=== PATIENT | female | born 1975 | race Caucasian/White ===

== ENCOUNTER 2016-08-09 19:18 | Emergency (ER) | payer OTHER ==
[~2016-08-09] VITALS: Ht 154.9 cm; Wt 47.5 kg
[~2016-08-09 19:18] MED LIST: BUPR100CR PO; PHEN100 PO; QUET100 PO; QUET200 PO; ZOFR4TAB3 SL
[2016-08-09 19:20] VITALS: BP 131/74; PULSE 88; RESP 15; TEMP 98.2; O2SAT 100
--- NOTE | 2016-08-09 20:29 | PD ---
HPI Chief Complaint: Psychiatric Symptoms Time Seen by Provider: 20:18 Travel History International Travel<30 days: No Contact w/Intl Traveler<30days: No Traveled to known affect area: No History of Present Illness HPI This is a 41-year-old female presents for evaluation of suicidal or homicidal ideation. She says that she's been feeling this way for the past 2-3 days. She reports that it seems to stem from the way that she is treated by "everyone. " She admits to recent drug use, most recently 3 or 4 days ago she used cocaine and alcohol. She is trying to quit. She does not see a psychiatrist on an outpatient basis. Per chart review it appears that the patient was admitted here psychiatrically on July 31 and discharged on August 01. She denies any hallucinations. She has no medical complaints at this time. PFSH Past Medical History Hx Anticoagulant Therapy: No Asthma: No Bipolar Disorder: Yes Anxiety: Yes Depression: Yes Cardiovascular Problems: No Chemotherapy: No Cerebrovascular Accident: No Diabetes: No Diminished Hearing: No Endocrine: No Genitourinary: No Immune Disorder: No Musculoskeletal: No Neurologic: Yes Psychiatric: No (Hx of treatment for depression) Reproductive: No Respiratory: No Immunizations Current: Yes Pneumonia: Yes Schizophrenia: Yes (SCHIZOAFFECTIVE) Seizures: Yes (Previously reported hx of seizure disorder) Thyroid Disease: No ?: Not LMP: 07/09/16 Menopausal: Yes : 2 Para: 1 Past Surgical History Section: Yes (X 2) Gynecologic Surgery: Yes (C SECTIONS X2) Hysterectomy: No Oral Surgery: Yes (JAW SURGERY) Other Surgery: Yes (jaw, ) Social History Alcohol Use: Yes (1/5 whiskey daily) Tobacco Use: Yes (1 PPD) Substance Use: Yes (COCAINED 2 DAYS AGO) Allergies-Medications (Allergen,Severity, Reaction): Coded Allergies: Aspirin (Verified Allergy, Severe, Swelling, 08/09/16) Nonsteroidal Anti-Inflammatory Agts (Unverified Allergy, Severe, SWELLING , 08/09/16) Haldol (Unverified Adverse Reaction, Unknown, 08/09/16) Reported Meds & Prescriptions Reported Meds & Active Scripts Active Review of Systems Except as stated in HPI: all other systems reviewed are Neg Physical Exam Narrative GENERAL: Well-developed well-nourished female in no acute distress SKIN: Warm and dry. HEAD: Atraumatic. Normocephalic. EYES: Pupils equal and round. No scleral icterus. No injection or drainage. ENT: No nasal bleeding or discharge. Mucous membranes pink and moist. NECK: Trachea midline. No JVD. CARDIOVASCULAR: Regular rate and rhythm. No murmur appreciated. RESPIRATORY: No accessory muscle use. Clear to auscultation. Breath sounds equal bilaterally. GASTROINTESTINAL: Abdomen soft, non-tender, nondistended. MUSCULOSKELETAL: No obvious deformities. NEUROLOGICAL: Awake and alert. No obvious cranial nerve deficits. Motor grossly within normal limits. Normal speech. PSYCHIATRIC: Appropriate mood and affect; insight and judgment normal. Data Data Last Documented VS Vital Signs Date Time Temp Pulse Resp B/P Pulse Ox O2 Delivery O2 Flow Rate FiO2 08/09/16 19:20 98.2 88 15 131/74 100 Room Air Orders Complete Blood Count With Diff (08/09/16 20:11) Comprehensive Metabolic Panel (08/09/16 20:11) Drug Screen, Random Urine (08/09/16 20:11) Alcohol (Ethanol) (08/09/16 20:11) Salicylates (Aspirin) (08/09/16 20:11) Tylenol (Acetaminophen) (08/09/16 20:11) Psych Screen (08/09/16 20:11) ^ Sitter (08/09/16 20:25) Labs Laboratory Tests Test 08/09/16 20:11 White Blood Count 5.3 TH/MM3 Red Blood Count 3.78 MIL/MM3 Hemoglobin 12.2 GM/DL Hematocrit 36.0 % Mean Corpuscular Volume 95.4 FL Mean Corpuscular Hemoglobin 32.3 PG Mean Corpuscular Hemoglobin 33.9 % Concent Red Cell Distribution Width 15.3 % Platelet Count 209 TH/MM3 Mean Platelet Volume 9.5 FL Neutrophils (%) (Auto) 62.0 % Lymphocytes (%) (Auto) 26.9 % Monocytes (%) (Auto) 8.5 % Eosinophils (%) (Auto) 2.2 % Basophils (%) (Auto) 0.4 % Neutrophils # (Auto) 3.3 TH/MM3 Lymphocytes # (Auto) 1.4 TH/MM3 Monocytes # (Auto) 0.5 TH/MM3 Eosinophils # (Auto) 0.1 TH/MM3 Basophils # (Auto) 0.0 TH/MM3 CBC Comment DIFF FINAL Differential Comment Sodium Level 142 MEQ/L Potassium Level 3.9 MEQ/L Chloride Level 112 MEQ/L Carbon Dioxide Level 25.7 MEQ/L Anion Gap 4 MEQ/L Blood Urea Nitrogen 10 MG/DL Creatinine 0.72 MG/DL Estimat Glomerular Filtration 90 ML/MIN Rate Random Glucose 78 MG/DL Calcium Level 8.6 MG/DL Total Bilirubin 0.2 MG/DL Aspartate Amino Transf 10 U/L (AST/SGOT) Alanine Aminotransferase 18 U/L (ALT/SGPT) Alkaline Phosphatase 72 U/L Total Protein 6.9 GM/DL Albumin 3.8 GM/DL Salicylates Level 4.4 MG/DL Urine Opiates Screen NEG Acetaminophen Level LESS THAN 2.0 MCG/ML Urine Barbiturates Screen NEG Urine Amphetamines Screen NEG Urine Benzodiazepines Screen NEG Urine Cocaine Screen NEG Urine Cannabinoids Screen NEG Ethyl Alcohol Level LESS THAN 3 MG/DL MDM Medical Decision Making Medical Screen Exam Complete: Yes Emergency Medical Condition: Yes Medical Record Reviewed: Yes Interpretation(s) Lab work unremarkable Differential Diagnosis Substance induced mood disorder, adjustment reaction, major depressive disorder , depressive disorder not otherwise specified, acute psychosis Narrative Course This is a 41-year-old female who presents voluntarily requesting evaluation for suicidal and homicidal ideation. Mental health screening discussed with the patient. Psychiatric screen ordered. A sitter has been ordered. The lab work has been reviewed. She is medically clear for psychiatric disposition. Joaquin Webb Aug 09, 2016 20:29
[2016-08-09 21:13] LABS: AUTOMATED NEUTROPHIL # 3.3 TH/MM3 (1.8-7.7); BASOPHIL % 0.4 % (0.0-2.0); EOSINOPHIL # 0.1 TH/MM3 (0-0.4); EOSINOPHIL % 2.2 % (0.0-4.0); HEMO FLAGS DIFF FINAL; LYMPH % 26.9 % (9.0-44.0); LYMPHOCYTE # 1.4 TH/MM3 (1.0-4.8); MEAN CELL VOLUME 95.4 FL (80.0-100.0); MEAN CORPUSCULAR HEMOGLOBIN 32.3 PG (27.0-34.0); MEAN CORPUSCULAR HGB CONC 33.9 % (32.0-36.0); MONO % 8.5 % (0.0-8.0); PLATELET COUNT 209 TH/MM3 (150-450); RED BLOOD COUNT 3.78 MIL/MM3 (4.00-5.30); RED CELL DISTRIBUTION WIDTH 15.3 % (11.6-17.2); WHITE BLOOD COUNT 5.3 TH/MM3 (4.0-11.0)
[2016-08-09 21:34] LABS: AMPHETAMINE, URINE NEG (NEG); BARBITURATES, URINE NEG (NEG); COCAINE, URINE NEG (NEG)
[2016-08-09 21:38] LABS: ACETAMINOPHEN LESS THAN 2.0 MCG/ML (10.0-30.0); ALKALINE PHOSPHATASE 72 U/L (45-117); ALT (GPT) 18 U/L (10-53); ANION GAP 4 MEQ/L (5-15); AST (GOT) 10 U/L (15-37); BICARBONATE 25.7 MEQ/L (21.0-32.0); BLOOD UREA NITROGEN 10 MG/DL (7-18); CHLORIDE 112 MEQ/L (98-107); GLOMERULAR FILTRATION RATE 90 ML/MIN (>89); POTASSIUM 3.9 MEQ/L (3.5-5.1); SODIUM (NA) 142 MEQ/L (136-145); TOTAL BILIRUBIN ADULT 0.2 MG/DL (0.2-1.0)
[2016-08-10 01:09] VITALS: BP 108/54; PULSE 63; RESP 16; O2SAT 98
== END 2016-08-10 06:48 | disposition left against medical advice (07) ==
LOC: NEPA 19:18
DX: R45.851 Suicidal ideations (principal); R45.850 Homicidal ideations; F31.9 Bipolar disorder, unspecified; F25.9 Schizoaffective disorder, unspecified; F17.210 Nicotine dependence, cigarettes, uncomplicated
CPT/HCPCS: 80053; 80307; 80320; 80329; 85025; 99285; G0480

== ENCOUNTER 2016-08-20 12:38 | Emergency (ER) | payer OTHER ==
[~2016-08-20] VITALS: Ht 152.4 cm; Wt 45.0 kg
[2016-08-20 12:40] VITALS: BP 130/72; PULSE 101; RESP 14; TEMP 98.4; O2SAT 98
--- NOTE | 2016-08-20 13:02 | PD ---
HPI Chief Complaint: Psychiatric Symptoms Time Seen by Provider: 13:02 Travel History International Travel<30 days: No Contact w/Intl Traveler<30days: No Traveled to known affect area: No History of Present Illness HPI 41-year-old female with history of seizure disorder, alcohol dependency and substance abuse presents to emergency department voluntarily for psychiatric evaluation. Patient states she has been feeling suicidal. She has no active plan. She states she last used alcohol and cocaine yesterday. She has recently been on a binge. States she has history of chronic back pain and this has been hurting her lately. She does not take any medication because she has been out. No new injuries. No recent illnesses, fever, chills. Patient has no other symptoms to report. PFSH Past Medical History Hx Anticoagulant Therapy: No Asthma: No Bipolar Disorder: Yes Anxiety: Yes Depression: Yes Cardiovascular Problems: No Chemotherapy: No Cerebrovascular Accident: No Diabetes: No Diminished Hearing: No Endocrine: No Gastrointestinal Disorders: Yes Genitourinary: No Immune Disorder: No Musculoskeletal: No Neurologic: Yes Reproductive: No Respiratory: No Immunizations Current: Yes Pneumonia: Yes Schizophrenia: Yes (SCHIZOAFFECTIVE) Seizures: Yes (Previously reported hx of seizure disorder) Thyroid Disease: No ?: Not Menopausal: Yes : 2 Para: 1 Past Surgical History Section: Yes (X 2) Gynecologic Surgery: Yes (C SECTIONS X2) Hysterectomy: No Oral Surgery: Yes (JAW SURGERY) Other Surgery: Yes (jaw, ) Social History Alcohol Use: Yes (1/5 whiskey daily) Tobacco Use: Yes (1 PPD) Substance Use: No Allergies-Medications (Allergen,Severity, Reaction): Coded Allergies: Aspirin (Verified Allergy, Severe, Swelling, 08/09/16) Nonsteroidal Anti-Inflammatory Agts (Unverified Allergy, Severe, SWELLING , 08/09/16) Haldol (Unverified Adverse Reaction, Unknown, 08/09/16) Reported Meds & Prescriptions Reported Meds & Active Scripts Active Review of Systems Except as stated in HPI: all other systems reviewed are Neg Physical Exam Narrative GENERAL: Unkempt but well-nourished female patient, ambulatory no acute distress SKIN: Warm and dry. HEAD: Normocephalic. Atraumatic EYES: No scleral icterus. No injection or drainage. NECK: Supple, trachea midline. No JVD or lymphadenopathy. CARDIOVASCULAR: Slightly elevated rate and rhythm without murmurs, gallops, or rubs. RESPIRATORY: Breath sounds equal bilaterally. No accessory muscle use. GASTROINTESTINAL: Abdomen soft, non-tender, nondistended. MUSCULOSKELETAL: No cyanosis, or edema. BACK: Nontender without obvious deformity. No CVA tenderness. Data Data Last Documented VS Vital Signs Date Time Temp Pulse Resp B/P Pulse Ox O2 Delivery O2 Flow Rate FiO2 08/20/16 13:28 98.5 76 18 115/64 100 08/20/16 12:40 Room Air Orders Complete Blood Count With Diff (08/20/16 12:51) Basic Metabolic Panel (Bmp) (08/20/16 12:51) Urinalysis - C+S If Indicated (08/20/16 12:51) Ed Urine Pregnancytest Poc (08/20/16 12:51) Drug Screen, Random Urine (08/20/16 12:51) Psych Screen (08/20/16 13:02) Urine Culture (08/20/16 13:37) Labs Laboratory Tests Test 08/20/16 13:37 Urine Color DARK-YELLOW Urine Turbidity CLOUDY Urine pH 5.5 Urine Specific [place] 1.028 Urine Protein 100 mg/dL Urine Glucose (UA) NEG mg/dL Urine Ketones 10 mg/dL Urine Occult Blood MOD Urine Nitrite NEG Urine Bilirubin NEG Urine Urobilinogen 4.0 MG/DL Urine Leukocyte Esterase LARGE Urine RBC 9 /hpf Urine WBC 71 /hpf Urine Squamous Epithelial 164 /hpf Cells Urine Calcium Oxalate Crystals MANY /hpf Urine Bacteria OCC /hpf Urine Mucus MANY /lpf Microscopic Urinalysis Comment CULTURE INDICATED MDM Medical Decision Making Medical Screen Exam Complete: Yes Emergency Medical Condition: Yes Medical Record Reviewed: Yes Differential Diagnosis Substance abuse versus mood disorder versus personality disorder versus adjustment reaction disorder Narrative Course 41-year-old female presents to emergency department voluntarily for psychiatric evaluation. Patient appears without distress. Her heart rate is slightly elevated however she does not appear tremulous or exhibiting any acute withdrawal symptoms. Lab work is initiated in triage. I have discussed the patient with SIDDHARTHA Baig. Patient will be transferred to the psychiatric pod while lab work pends. Psych screen is ordered. Diagnosis Primary Impression: substance induced mood Additional Impressions: Polysubstance abuse UTI (urinary tract infection) Qualified Code: N39.0 - Urinary tract infection without hematuria, site unspecified Med/Other Pt SpecificInfo: Prescription(s) given Scripts Ciprofloxacin (Cipro)500 Mg [id number] Mg PO BID 7 Days Ref 0 Prov:Anette Ferrer 08/20/16 Condition: Stable Anette Ferrer Aug 20, 2016 13:02
[2016-08-20 13:28] VITALS: BP 115/64; PULSE 76; RESP 18; TEMP 98.5; O2SAT 100
[2016-08-20 14:00] LABS: BACTERIA, URINE OCC /hpf; BLOOD, URINE MOD (NEG); CALCIUM OXALATE CRYSTALS,URINE MANY /hpf; GLUCOSE,URINE NEG (NEG); KETONE, URINE 10 mg/dL (NEG); MUCUS URINE MANY /lpf (OCC); NITRITE,URINE NEG (NEG); PH, URINE 5.5 (5.0-8.5); SQUAMOUS EPITHELIAL CELL URINE 164 /hpf (0-5); URINE COLOR DARK-YELLOW (YELLW/STRAW)
[2016-08-20 14:06] LABS: COMMENT (UR) CULTURE INDICATED; CULTURE IF INDICATED CULTURE INDICATED
[2016-08-20] MEDS ORDERED: CIPR-9 PO (14:11)
[2016-08-20 14:14] LABS: AMPHETAMINE, URINE NEG (NEG); BARBITURATES, URINE NEG (NEG); COCAINE, URINE POS (NEG)
[2016-08-20] MEDS ORDERED: LIDOCAINE HCL 1% 50 ML VIAL XX ONE (14:15)
[2016-08-20 18:56] LABS: AUTOMATED NEUTROPHIL # 1.9 TH/MM3 (1.8-7.7); BASOPHIL # 0.1 TH/MM3 (0-0.2); BASOPHIL % 1.4 % (0.0-2.0); EOSINOPHIL # 0.1 TH/MM3 (0-0.4); EOSINOPHIL % 1.4 % (0.0-4.0); HEMATOCRIT 36.5 % (35.0-46.0); HEMO FLAGS DIFF FINAL; LYMPH % 37.2 % (9.0-44.0); LYMPHOCYTE # 1.5 TH/MM3 (1.0-4.8); MEAN CELL VOLUME 95.9 FL (80.0-100.0); MEAN CORPUSCULAR HEMOGLOBIN 31.7 PG (27.0-34.0); MEAN CORPUSCULAR HGB CONC 33.1 % (32.0-36.0); MONO % 12.7 % (0.0-8.0); NEUT % 47.3 % (16.0-70.0); PLATELET COUNT 179 TH/MM3 (150-450); RED BLOOD COUNT 3.81 MIL/MM3 (4.00-5.30); RED CELL DISTRIBUTION WIDTH 14.6 % (11.6-17.2); WHITE BLOOD COUNT 4.1 TH/MM3 (4.0-11.0)
[2016-08-20 19:27] LABS: BICARBONATE 25.4 MEQ/L (21.0-32.0); POTASSIUM 3.7 MEQ/L (3.5-5.1)
--- NOTE | 2016-08-20 19:28 | PD ---
History of Present Illness Chief Complaint: Psychiatric Symptoms Time Seen by Provider: 19:15 Travel History International Travel<30 Days: No Contact w/Intl Traveler<30days: No Known affected area: No Legal Status Legal Status: Voluntary History of Present Illness: History of Present Illness 41-year-old female with history of seizure disorder, schizoaffective disorder, alcohol and cocaine abuse who presents to ED voluntarily for psychiatric evaluation. Patient is reporting increase in suicidal ideation with no reported plan and that the thoughts have increased since she went on a cocaine binge x 1 week. She has made no attempts but does report a history of previous suicidal attempts with the last being 5 months ago when she alleges she jumped in front of a car. She states she last used alcohol and cocaine yesterday. As per EMR review she has had multiple visits to Ed as well as several admissions to [facility]. her last psychiatric admission was on Jul 31, 2016 and she was admitted for suicidal ideation. She requested release after 24 hours stay. She has been non compliant with her medication for at least 2 weeks after her discharge from a facility in [place]. She is unable to provide the name of the facility but states that it was a psychiatric facility. Patient is alert, oriented, calm and engaging. Speech is clear and logical. She reports A/H non command type and states " they are spirit voices". She does not appear internally preoccupied. She endorses continued sucidal ideation with no plan. PFSH Past Medical History Hx Anticoagulant Therapy: No Asthma: No Bipolar Disorder: Yes Anxiety: Yes Depression: Yes Cardiovascular Problems: No Chemotherapy: No Cerebrovascular Accident: No Diabetes: No Diminished Hearing: No Endocrine: No Gastrointestinal Disorders: Yes Genitourinary: No Immune Disorder: No Musculoskeletal: No Neurologic: Yes Psychiatric: Yes (SCHIZOAFFECTIVE) Reproductive: No Respiratory: No Immunizations Current: Yes Pneumonia: Yes Schizophrenia: Yes (SCHIZOAFFECTIVE) Seizures: Yes (WITHDRAWAL) Thyroid Disease: No ?: Unknown Menopausal: Yes : 2 Para: 1 Past Surgical History Section: Yes Gynecologic Surgery: Yes (C SECTIONS X2) Hysterectomy: No Oral Surgery: Yes (JAW SURGERY) Other Surgery: Yes (jaw, ) Psychiatric History Psychiatric History Hx [facility]IENT HAS A HISTORY OF SCHIZOPHRENIA, BIPOLAR DISORDER, DEPRESSION, AND ANXIETY. PATIENT WAS LAST ADMITTED TO [facility] FROM 07/31/16 TO 08/01/16 FOR SUICIDAL IDEATION. History of Inpatient Treatment: Yes (has been admitted [facility] Guns or firearms in home: No Social History female. Has 3 children who are in the custody of their father. She is homeless and reports she " do what I have to do to make money". Hx Alcohol Use: Yes Hx Tobacco Use: Yes Hx Substance Use: Yes (CRACK) Substance Use Type: Alcohol, Crack, Cocaine Other Substances Used: SINCE AGE 18 PER REPORT Hx of Substance Use Treatment: No Family Psychiatric History unknown Allergies-Medications (Allergen,Severity, Reaction): Coded Allergies: Aspirin (Verified Allergy, Severe, Swelling, 08/20/16) Nonsteroidal Anti-Inflammatory Agts (Unverified Allergy, Severe, SWELLING , 08/20/16) Haldol (Unverified Adverse Reaction, Unknown, 08/20/16) Reported Meds & Prescriptions Reported Meds & Active Scripts Active No Active Prescriptions or Reported Medications Review of Systems Constitutional: DENIES: Diaphoretic episodes, Fatigue, Fever, Weight gain, Weight loss, Chills, Dizziness, Change in appetite, Night Sweats Endocrine: DENIES: Abnorml menstrual pattern, Heat/cold intolerance, Polydipsia , Polyuria, Polyphagia Eyes: DENIES: Blurred vision, Diplopia, Eye inflammation, Eye pain, Vision loss , Photosensitivity, Double Vision Ears, nose, mouth, throat: DENIES: Tinnitus, Hearing loss, Vertigo, Nasal discharge, Oral lesions, Throat pain, Hoarseness, Ear Pain, Running Nose, Epistaxis, Sinus Pain, Toothache, Odynophagia Respiratory: DENIES: Apneas, Cough, Snoring, Wheezing, Hemoptysis, Sputum production, Shortness of breath Cardiovascular: DENIES: Chest pain, Palpitations, Syncope, Dyspnea on Exertion , PND, Lower Extremity Edema, Orthopnea, Claudication Genitourinary: DENIES: Abnormal vaginal bleeding, Dysmenorrhea, Dyspareunia, Sexual dysfunction, Urinary frequency, Urinary incontinence, Urgency, Hematuria , Dysuria, Nocturia, Vaginal discharge Musculoskeletal: DENIES: Joint pain, Muscle aches, Stiffness, Joint Swelling, Back pain, Neck pain Integumentary: DENIES: Abnormal pigmentation, Pruritus, Rash, Nail changes, Breast masses, Breast skin changes, Nipple discharge Hematologic/lymphatic: DENIES: Bruising, Lymphadenopathy Immunologic/allergic: DENIES: Eczema, Urticaria Neurologic: DENIES: Abnormal gait, Headache, Localized weakness, Paresthesias, Seizures, Speech Problems, Tremor, Poor Balance Psychiatric: COMPLAINS OF: Hallucinations, Suicidal Ideation Exam Alert: Yes [place]: Person (ox3) Mood: Anxious Affect: Euthymic Speech: Clear, Logical Eye Contact: Normal Memory Intact: Comment (not impaired) Hallucinations: Auditory Delusions: No Suicidal: Plan (no active plan), Ideation Homicidal: Ideation (deneis) Insight/Judgement poor. poor MDM Medical Decision Making Medical Record Reviewed: Yes Assessment/Plan 41 year old female with history of schizoaffective disorder and substance abuse who is under a voluntary status for suicidal ideation and increase in auditory hallucinations in context of non compliance with medication and substance use including alcohol and cocaine. At this time the patient is clinically sober and continues to endorse suicidal ideation. It is recommended that she be admitted to inpatient treatment for safety and to initiate psychiatric medication. She will remain in J pod until bed available or until she is reevaluated in the morning. Orders Complete Blood Count With Diff (08/20/16 12:51) Basic Metabolic Panel (Bmp) (08/20/16 12:51) Urinalysis - C+S If Indicated (08/20/16 12:51) Ed Urine Pregnancytest Poc (08/20/16 12:51) Drug Screen, Random Urine (08/20/16 12:51) Psych Screen (08/20/16 13:02) Urine Culture (08/20/16 13:37) Ceftriaxone Inj (Rocephin Inj) (08/20/16 14:15) Lidocaine 1% Inj (50 Ml) (Xylocaine 1% I (08/20/16 14:15) Diet Regular Basic (08/20/16 Dinner) Results Vital Signs Date Time Temp Pulse Resp B/P Pulse Ox O2 Delivery O2 Flow Rate FiO2 08/20/16 13:28 98.5 76 18 115/64 100 08/20/16 12:40 98.4 101 14 130/72 98 Room Air Laboratory Tests Test 08/20/16 08/20/16 13:37 18:33 Urine Color DARK-YELLOW Urine Turbidity CLOUDY Urine pH 5.5 Urine Specific [place] 1.028 Urine Protein 100 Urine Glucose (UA) NEG Urine Ketones 10 Urine Occult Blood MOD Urine Nitrite NEG Urine Bilirubin NEG Urine Urobilinogen 4.0 Urine Leukocyte Esterase LARGE Urine RBC 9 Urine WBC 71 Urine Squamous Epithelial 164 Cells Urine Calcium Oxalate Crystals MANY Urine Bacteria OCC Urine Mucus MANY Microscopic Urinalysis Comment CULTURE INDICATED Urine Opiates Screen NEG Urine Barbiturates Screen NEG Urine Amphetamines Screen NEG Urine Benzodiazepines Screen NEG Urine Cocaine Screen POS Urine Cannabinoids Screen NEG White Blood Count 4.1 Red Blood Count 3.81 Hemoglobin 12.1 Hematocrit 36.5 Mean Corpuscular Volume 95.9 Mean Corpuscular Hemoglobin 31.7 Mean Corpuscular Hemoglobin 33.1 Concent Red Cell Distribution Width 14.6 Platelet Count 179 Mean Platelet Volume 8.7 Neutrophils (%) (Auto) 47.3 Lymphocytes (%) (Auto) 37.2 Monocytes (%) (Auto) 12.7 Eosinophils (%) (Auto) 1.4 Basophils (%) (Auto) 1.4 Neutrophils # (Auto) 1.9 Lymphocytes # (Auto) 1.5 Monocytes # (Auto) 0.5 Eosinophils # (Auto) 0.1 Basophils # (Auto) 0.1 CBC Comment DIFF FINAL Differential Comment Sodium Level 140 Potassium Level 3.7 Chloride Level 106 Carbon Dioxide Level 25.4 Anion Gap 9 Blood Urea Nitrogen 12 Creatinine 0.74 Estimat Glomerular Filtration 87 Rate Random Glucose 75 Calcium Level 8.5 Date/Time Procedure Status Source Growth 08/20/16 13:37 Urine Culture Worksheet Urine Clean Catch Pending Diagnosis Primary Impression: substance induced mood Additional Impressions: UTI (urinary tract infection) Polysubstance abuse Schizoaffective disorder, bipolar type Prescriptions No Active Prescriptions or Reported Meds Condition: Stable Problem Qualifiers Additional Impressions: UTI (urinary tract infection) Qualified Code: N39.0 - Urinary tract infection without hematuria, site unspecified Johnna Flynn Aug 20, 2016 19:28
[2016-08-20] MEDS ORDERED: PHENYTOIN SODIUM 100 MG CAP PO ONE (20:00)
[2016-08-20 22:21] VITALS: BP 101/54; PULSE 60; RESP 16; O2SAT 99
[2016-08-21 01:55] VITALS: BP 103/51; PULSE 65; RESP 18; O2SAT 99
[2016-08-21 06:31] VITALS: BP 101/51; PULSE 63; RESP 17; TEMP 98.6; O2SAT 100
[2016-08-21] MEDS: CEPHALEXIN MONOHYDRATE 500 MG CAP PO ONE ×2 (10:10→11:25)
[2016-08-21] MEDS ORDERED: ACETAMINOPHEN 325 MG TAB PO ONE (11:45)
[2016-08-21] MEDS ORDERED: LORazepam 2 MG/ML VIAL IV PUSH PRN ×4 (18:00)
[2016-08-21] MEDS ORDERED: LORazepam 1 MG TAB PO PRN (18:00)
[2016-08-21] MEDS ORDERED: LORazepam 2 MG TAB PO PRN (18:00)
[2016-08-21] MEDS ORDERED: FLUMAZENIL 0.5 MG/5 ML VIAL IV PUSH PRN (18:00)
[2016-08-21 18:18] VITALS: BP 108/53; PULSE 66; RESP 18; O2SAT 96
--- NOTE | 2016-08-21 18:41 | MB ---
cc: FANY CRAMER MD DATE OF CONSULTATION: 08/21/16 PHYSICIAN REQUESTING CONSULTATION Emergency Department. REASON FOR CONSULTATION Voluntary psychiatric evaluation. HISTORY OF PRESENT ILLNESS Ms. Treadwell is a 41-year-old female with a reported history of schizoaffective disorder and also cocaine use disorder who presents on a voluntary basis for psychiatric evaluation saying she has been feeling suicidal. The patient was evaluated yesterday by the psychiatric nurse practitioner who recommended ongoing observation in the [facility] and inpatient psychiatric admission. Reviewing the electronic medical record, I see the patient has an extensive history of ED visits and inpatient psychiatric admissions most recently admitted under Dr. Dos Santos/Dr. Quintanilla at the end of July, and she insisted on signing a right of release after having been in the hospital for about a day and was discharged. I also note that the patient presented to the ED with similar symptoms to today about 10 days ago and left against medical advice at that time. The patient seen and examined. Chart reviewed. Case discussed with nursing staff. The patient's report me is "I have insurance and I'm suicidal, send me somewhere else." The patient requests to be admitted to and inpatient psychiatric unit. She says that she is experiencing suicidal ideation and "demonic voices that are speaking constant threats that they want me ." She is otherwise an extremely vague historian. The remainder of the psychiatric ROS is negative. PAST PSYCHIATRIC HISTORY The patient reports a history of schizoaffective disorder. She has been, by her own admission, repeatedly nonadherent with treatment. Her most recent psychiatric admission was here. She endorses a history of non-suicidal self-injurious behavior namely cutting and also alludes to some history of lara asmita suicide attempts although she does not describe these in any detail. FAMILY HISTORY Includes a family history of bipolar disorder. CHEMICAL DEPENDENCY HISTORY The patient reports that she uses both powder and crack cocaine. She also says that she drinks some alcohol. She says that she consumes perhaps a pint of liquor daily. SOCIAL HISTORY The patient is homeless. She has an 11th grade education. She is with eight children. Denies any history. Denies any active legal issues. Denies any access to guns or firearms. PAST MEDICAL HISTORY Includes a history of seizure disorder. REVIEW OF SYSTEMS No reported headache, vision or hearing changes, chest pain, shortness of breath, bowel or bladder issues. No other physical complaints. PHYSICAL EXAMINATION VITAL SIGNS: Temp is 98.6, pulse is 63, respirations 17, blood pressure 101/51, pulse oximetry 100% on room air. Physical examination was completed in the emergency room by the ER staff and the patient was medically cleared. On my examination today, the patient appears to be in no acute physical distress. No signs of intoxication or withdrawal noted. In particular no signs of alcohol withdrawal noted, nor is the patient hypertensive or tachycardic. She appears to be in no acute distress generally. LABORATORY Laboratories reviewed. CBC is unremarkable. BMP is significant for a mildly decreased GFR of 87. Urine toxicology positive for cocaine. Urinalysis results reviewed and the urine culture reveals mixed priscila. MENTAL STATUS EXAMINATION The patient is in hospital gown. She is fairly well-groomed. She is awake and alert and oriented to person and hospital at least. No abnormal motor movements noted. Speech is with a little terse but within normal limits for rate, tone and volume. Mood is dysphoric but not really depressed and affect is restricted. Thought process linear. No loosening of associations. No evident delusions. Endorses deprecatory auditory hallucinations as detailed above. No reported command auditory hallucinations. No visual or other hallucinatory phenomena. The patient insists that she is suicidal but does not say what she might do. No reported urge to hurt herself on the inpatient psychiatric unit. No homicidal ideation. Insight and judgment are fair. ASSESSMENT AND PLAN 1. Cocaine dependence with cocaine-induced mood disorder, F14.24. 2. Suspect symptom exaggeration or malingering for skilled nursing. This is a 41-year-old female with a history of cocaine dependence who presents on a voluntary basis for psychiatric evaluation. She came in for psychiatric evaluation about 10 days ago and left against medical advice. Before that she had been on the inpatient psychiatric unit and insisted on release. The patient is presently homeless and my sense is that the patient is seeking admission to the inpatient psychiatric unit chiefly for skilled nursing. She apparently does not want to be hospitalized at [facility] and says that she has insurance and should be transferred elsewhere. We will endeavor to accommodate the patient. The patient to be retained in the [facility] on a voluntary basis and [facility]. I will place the patient on a CIWA scale given that the patient reports that she has been abusing alcohol although she has no signs of withdrawal at present. Seizure precautions. Case discussed with RN in the J pod. Thank you very much for this consultation. Fany Cramer DC/CHHAYA /5:52 PM /6:16 PM ALTAF
[2016-08-21] MEDS ORDERED: CEPHALEXIN MONOHYDRATE 500 MG CAP PO SCH (21:00)
[2016-08-21 22:00] VITALS: BP 79/43; PULSE 65; RESP 18; O2SAT 99
[2016-08-22 02:43] VITALS: BP 100/54; PULSE 60; RESP 18; O2SAT 97
[2016-08-22 06:18] VITALS: BP 99/48; PULSE 60; RESP 18; TEMP 97.5; O2SAT 97
== END 2016-08-22 08:40 ==
LOC: NEPJ 12:38
DX: F14.24 Cocaine dependence with cocaine-induced mood disorder (principal); N39.0 Urinary tract infection, site not specified; F10.20 Alcohol dependence, uncomplicated; F25.9 Schizoaffective disorder, unspecified; F17.210 Nicotine dependence, cigarettes, uncomplicated; F19.10 Other psychoactive substance abuse, uncomplicated
CPT/HCPCS: 80048; 80307; 81001; 84703; 85025; 87086; 96372; 99285; J0696

== ENCOUNTER 2016-09-07 00:23 | Emergency (ER) | payer OTHER ==
[~2016-09-07] VITALS: Ht 154.9 cm; Wt 50.0 kg
[2016-09-07 00:36] VITALS: BP 141/76; PULSE 84; RESP 18; TEMP 97.9; O2SAT 99
--- NOTE | 2016-09-07 00:49 | PD ---
HPI Chief Complaint: Altered Mental Status Time Seen by Provider: 00:36 Travel History International Travel<30 days: No Contact w/Intl Traveler<30days: No History of Present Illness HPI 41-year-old female here brought in by police. Apparently patient was smoking in front of the [employer] store. Please have been told to rest any person loitering. Patient was approached by police and was cooperative until the stated that they needed to bring her to senior care. When attempting to cough her patient stated that she had "a heart condition" and cannot go to senior care because " I don't have a pulse". EMS was called and noted patient to be hypoglycemic in the 50s, improved with oral glucose. Blood glucose here in the 80s. Patient states that she has bilateral low back pain, and urinary frequency. Patient seen here recently with abnormal urinalysis but urine culture with mixed priscila. She has a history of polysubstance abuse and substance induced mood disorder. She denies any psychiatric symptoms at this time. PFSH Past Medical History Hx Anticoagulant Therapy: No Asthma: No Bipolar Disorder: Yes Anxiety: Yes Depression: Yes Cardiovascular Problems: No Chemotherapy: No Cerebrovascular Accident: No Diabetes: No Diminished Hearing: No Endocrine: No Gastrointestinal Disorders: Yes Genitourinary: No Immune Disorder: No Musculoskeletal: No Neurologic: Yes Psychiatric: Yes (SCHIZOAFFECTIVE) Reproductive: No Respiratory: No Immunizations Current: Yes Pneumonia: Yes Schizophrenia: Yes (SCHIZOAFFECTIVE) Seizures: Yes (WITHDRAWAL) Thyroid Disease: No Menopausal: Yes : 2 Para: 1 Past Surgical History Section: Yes Gynecologic Surgery: Yes (C SECTIONS X2) Hysterectomy: No Oral Surgery: Yes (JAW SURGERY) Other Surgery: Yes (jaw, ) Social History Alcohol Use: Yes Tobacco Use: Yes Substance Use: Yes (CRACK) Allergies-Medications (Allergen,Severity, Reaction): Coded Allergies: Aspirin (Verified Allergy, Severe, Swelling, 09/07/16) Haldol (Unverified Adverse Reaction, Unknown, 09/07/16) Reported Meds & Prescriptions Reported Meds & Active Scripts Active No Active Prescriptions or Reported Medications Review of Systems ROS Limitations: Poor Historian Except as stated in HPI: all other systems reviewed are Neg Physical Exam Exam Limitations: Poor Historian Narrative GENERAL: Disheveled adult female appearing older than stated age in no acute distress SKIN: Warm and dry. HEAD: Normocephalic. EYES: No scleral icterus. No injection or drainage. ENT: Mucous membranes pink and moist. NECK: Supple CARDIOVASCULAR: Regular rate and rhythm. No murmur appreciated. RESPIRATORY: No accessory muscle use. Clear to auscultation. Breath sounds equal bilaterally. GASTROINTESTINAL: Abdomen soft, non-tender, nondistended. MUSCULOSKELETAL: Normal gait NEUROLOGICAL: Awake and alert. Motor grossly within normal limits. Normal speech. PSYCHIATRIC: Blunted mood and affect, denies suicidal ideation, homicide ideation, delusions or hallucinations Data Data Last Documented VS Vital Signs Date Time Temp Pulse Resp B/P Pulse Ox O2 Delivery O2 Flow Rate FiO2 09/07/16 00:36 97.9 84 18 141/76 99 Orders Complete Blood Count With Diff (09/07/16 00:44) Basic Metabolic Panel (Bmp) (09/07/16 00:44) Urinalysis - C+S If Indicated (09/07/16 00:44) Drug Screen, Random Urine (09/07/16 00:44) Ibuprofen (Motrin) (09/07/16 02:30) Labs Laboratory Tests Test 09/07/16 09/07/16 01:00 01:45 Urine Color YELLOW Urine Turbidity CLEAR Urine pH 6.0 Urine Specific Graham 1.018 Urine Protein TRACE mg/dL Urine Glucose (UA) NEG mg/dL Urine Ketones 10 mg/dL Urine Occult Blood NEG Urine Nitrite NEG Urine Bilirubin NEG Urine Urobilinogen LESS THAN 2.0 MG/DL Urine Leukocyte Esterase NEG Urine RBC LESS THAN 1 /hpf Urine WBC 2 /hpf Urine Squamous Epithelial 1 /hpf Cells Urine Hyaline Casts 3 /lpf Urine Mucus FEW /lpf Microscopic Urinalysis Comment CATH-CULT NOT IND Sodium Level 140 MEQ/L Potassium Level 3.3 MEQ/L Chloride Level 108 MEQ/L Carbon Dioxide Level 20.9 MEQ/L Anion Gap 11 MEQ/L Blood Urea Nitrogen 8 MG/DL Creatinine 0.74 MG/DL Estimat Glomerular Filtration 87 ML/MIN Rate Random Glucose 121 MG/DL Calcium Level 8.0 MG/DL White Blood Count 5.7 TH/MM3 Red Blood Count 3.78 MIL/MM3 Hemoglobin 12.0 GM/DL Hematocrit 35.2 % Mean Corpuscular Volume 93.0 FL Mean Corpuscular Hemoglobin 31.8 PG Mean Corpuscular Hemoglobin 34.2 % Concent Red Cell Distribution Width 14.0 % Platelet Count 174 TH/MM3 Mean Platelet Volume 8.6 FL Neutrophils (%) (Auto) 60.6 % Lymphocytes (%) (Auto) 34.4 % Monocytes (%) (Auto) 3.7 % Eosinophils (%) (Auto) 0.8 % Basophils (%) (Auto) 0.5 % Neutrophils # (Auto) 3.5 TH/MM3 Lymphocytes # (Auto) 2.0 TH/MM3 Monocytes # (Auto) 0.2 TH/MM3 Eosinophils # (Auto) 0.0 TH/MM3 Basophils # (Auto) 0.0 TH/MM3 CBC Comment DIFF FINAL Differential Comment MDM Medical Decision Making Medical Screen Exam Complete: Yes Emergency Medical Condition: Yes Medical Record Reviewed: Yes Differential Diagnosis 41-year-old female with history of polysubstance abuse and psychiatric disorders here complaining of "not having a pulse" and low back pain/urinary symptoms after she was arrested. Differential includes evading arrest, UTI, ureterolithiasis. Patient was hypoglycemic and does not have a known diabetic history, concern for electrolyte abnormality. Narrative Course Patient placed on monitor, IV established and blood obtained. CBC, BMP, urinalysis and urine drug screen notable for potassium 3.3. Replaced with 40 mEq orally. Diagnosis Primary Impression: Hypokalemia Referrals: [facility] as needed Primary Care Physician as needed Med/Other Pt SpecificInfo: No Change to Meds Scripts No Active Prescriptions or Reported Meds Disposition: DISCHARGE HOME Condition: Stable Judy Venegas MD Sep 07, 2016 00:49
[2016-09-07 01:48] LABS: BLOOD, URINE NEG (NEG); COMMENT (UR) CATH-CULT NOT IND; CULTURE IF INDICATED CATH CULTURE NOT IND; GLUCOSE,URINE NEG (NEG); HYALINE CAST, URINE 3 /lpf (RARE); KETONE, URINE 10 mg/dL (NEG); MUCUS URINE FEW /lpf (OCC); NITRITE,URINE NEG (NEG); SQUAMOUS EPITHELIAL CELL URINE 1 /hpf (0-5); URINE COLOR YELLOW (YELLW/STRAW)
[2016-09-07 02:02] LABS: BICARBONATE 20.9 MEQ/L (21.0-32.0); POTASSIUM 3.3 MEQ/L (3.5-5.1)
[2016-09-07 02:14] LABS: AMPHETAMINE, URINE NEG (NEG); BARBITURATES, URINE NEG (NEG); COCAINE, URINE POS (NEG)
[2016-09-07 02:28] LABS: AUTOMATED NEUTROPHIL # 3.5 TH/MM3 (1.8-7.7); BASOPHIL % 0.5 % (0.0-2.0); EOSINOPHIL % 0.8 % (0.0-4.0); HEMATOCRIT 35.2 % (35.0-46.0); HEMO FLAGS DIFF FINAL; LYMPH % 34.4 % (9.0-44.0); MEAN CORPUSCULAR HEMOGLOBIN 31.8 PG (27.0-34.0); MEAN CORPUSCULAR HGB CONC 34.2 % (32.0-36.0); MONO % 3.7 % (0.0-8.0); NEUT % 60.6 % (16.0-70.0); PLATELET COUNT 174 TH/MM3 (150-450); RED BLOOD COUNT 3.78 MIL/MM3 (4.00-5.30); WHITE BLOOD COUNT 5.7 TH/MM3 (4.0-11.0)
[2016-09-07] MEDS ORDERED: IBUPROFEN 800 MG TAB PO ONE (02:30)
[2016-09-07] MEDS ORDERED: POTASSIUM CHLORIDE 10 MEQ CONTROLLED RELEASE TAB PO ONE (02:45)
== END 2016-09-07 03:01 | disposition home or self-care (01) ==
LOC: NEPE 00:23
DX: E87.6 Hypokalemia (principal)
CPT/HCPCS: 80048; 80307; 81001; 85025; 99283

== ENCOUNTER 2016-09-07 03:10 | Emergency (ER) | payer OTHER ==
[2016-09-07 03:12] VITALS: BP 155/78; PULSE 99; RESP 16; TEMP 98.3; O2SAT 98
--- NOTE | 2016-09-07 03:31 | PD ---
HPI Chief Complaint: Suicide Ideation/Attempt Time Seen by Provider: 03:27 Travel History International Travel<30 days: No Contact w/Intl Traveler<30days: No Traveled to known affect area: No History of Present Illness HPI 41-year-old female here after just being discharged by myself, now back with suicidal ideation. Patient had been picked up by police and trespassing charges and was cooperative and asymptomatic until she found out that she was being arrested at which point she had various symptoms. She was seen and evaluated by myself, just the last 1-2 hours, please see that associated note. At that time patient denied any suicidal ideation, plan, etc. She was discharged after unremarkable workup. Patient is homeless. She left our emergency department, and comes back now stating that she is suicidal. She does not have a plan. Patient admits that she is homeless and is cold outside and she does not have anywhere to go. She does not take any medications at home. Patient requests to go to [facility]. [facility] Past Medical History Hx Anticoagulant Therapy: No Asthma: No Bipolar Disorder: Yes Anxiety: Yes Depression: Yes Cardiovascular Problems: No Chemotherapy: No Cerebrovascular Accident: No Diabetes: No Diminished Hearing: No Endocrine: No Gastrointestinal Disorders: Yes Genitourinary: No Immune Disorder: No Musculoskeletal: No Neurologic: Yes Psychiatric: Yes (SCHIZOAFFECTIVE) Reproductive: No Respiratory: No Immunizations Current: Yes Pneumonia: Yes Schizophrenia: Yes (SCHIZOAFFECTIVE) Seizures: Yes (WITHDRAWAL) Thyroid Disease: No Tetanus Vaccination: Unknown Influenza Vaccination: No ?: Not Menopausal: Yes : 2 Para: 1 Past Surgical History Section: Yes Gynecologic Surgery: Yes (C SECTIONS X2) Hysterectomy: No Oral Surgery: Yes (JAW SURGERY) Other Surgery: Yes (jaw, ) Social History Alcohol Use: Yes Tobacco Use: Yes Substance Use: Yes (CRACK) Allergies-Medications (Allergen,Severity, Reaction): Coded Allergies: Aspirin (Verified Allergy, Severe, Swelling, 09/07/16) Haldol (Unverified Adverse Reaction, Unknown, 09/07/16) Reported Meds & Prescriptions Reported Meds & Active Scripts Active No Active Prescriptions or Reported Medications Review of Systems ROS Limitations: Poor Historian Except as stated in HPI: all other systems reviewed are Neg Physical Exam Exam Limitations: Poor Historian Narrative GENERAL: Thin female in no acute distress SKIN: Warm and dry. HEAD: Normocephalic. EYES: No scleral icterus. No injection or drainage. ENT: Mucous membranes pink and moist. NECK: Supple CARDIOVASCULAR: Regular rate and rhythm. RESPIRATORY: No accessory muscle use. MUSCULOSKELETAL: Normal gait NEUROLOGICAL: Awake and alert. Normal speech. PSYCHIATRIC: Reported suicidal ideation but no plan. Denies delusions, hallucinations, homicidal ideation. Data Data Last Documented VS Vital Signs Date Time Temp Pulse Resp B/P Pulse Ox O2 Delivery O2 Flow Rate FiO2 09/07/16 03:12 98.3 99 16 155/78 98 Room Air MDM Medical Decision Making Medical Screen Exam Complete: Yes Emergency Medical Condition: Yes Medical Record Reviewed: Yes Differential Diagnosis 41-year-old female here for suicidal ideation. Differential includes depression , suicidal ideation, substance induced mood disorder, malingering. Narrative Course Given patient's timeline of just being here and not having suicidal ideation or plan my strong suspicion is that patient is malingering as she is currently homeless, at 3:30 in the morning and cold outside. Patient admits that her lack of domicile contributes to her symptoms here and requests to go to [facility]. I discussed appropriate use of emergency department resources, and though I'm happy to get her outpatient follow-up for her depression, emergent psychiatric evaluation is not warranted at this time given her lack of plan and malingering symptoms. Patient became upset with me because I was not going to allow her to sleep in our emergency department overnight, patient states "I'm hungry, and it's cold". Patient grabbed the blanket that was on her bed and stormed out of the emergency department stating "I'm in intake this blanket as I paid for it already". I encouraged her to seek outpatient follow-up with [facility] for her polysubstance abuse. Diagnosis Primary Impression: Malingering Referrals: [facility] needed Med/Other Pt SpecificInfo: No Change to Meds Scripts No Active Prescriptions or Reported Meds Disposition: 01 DISCHARGE HOME Condition: Stable Judy Venegas MD Sep 07, 2016 03:31
== END 2016-09-07 03:44 | disposition home or self-care (01) ==
LOC: NEPE 03:10
DX: R45.851 Suicidal ideations (principal); Z76.5 Malingerer [conscious simulation]; Z59.0 Homelessness
CPT/HCPCS: 99284

== ENCOUNTER 2017-11-07 16:24 | Emergency (ER) | payer OTHER ==
[2017-11-07 16:47] VITALS: BP 116/73; PULSE 73; RESP 17; TEMP 98.2; O2SAT 100
[2017-11-07 17:43] LABS: AUTOMATED NEUTROPHIL # 3.6 TH/MM3 (1.8-7.7); BASOPHIL % 0.5 % (0.0-2.0); EOSINOPHIL # 0.2 TH/MM3 (0-0.4); EOSINOPHIL % 3.1 % (0.0-4.0); HEMATOCRIT 40.8 % (35.0-46.0); HEMOGLOBIN 13.6 GM/DL (11.6-15.3); LYMPH % 24.1 % (9.0-44.0); LYMPHOCYTE # 1.4 TH/MM3 (1.0-4.8); MEAN CORPUSCULAR HEMOGLOBIN 32.3 PG (27.0-34.0); MEAN CORPUSCULAR HGB CONC 33.3 % (32.0-36.0); MEAN PLATELET VOLUME 8.9 FL (7.0-11.0); MONO % 8.9 % (0.0-8.0); MONOCYTE # 0.5 TH/MM3 (0-0.9); NEUT % 63.4 % (16.0-70.0); PLATELET COUNT 209 TH/MM3 (150-450); RED CELL DISTRIBUTION WIDTH 13.8 % (11.6-17.2); WHITE BLOOD COUNT 5.7 TH/MM3 (4.0-11.0)
--- NOTE | 2017-11-07 17:57 | PD ---
HPI Chief Complaint: Psychiatric Symptoms Time Seen by Provider: 16:48 Travel History International Travel<30 days: No Contact w/Intl Traveler<30days: No Traveled to known affect area: No History of Present Illness HPI 42-year-old female that presents to the ED for evaluation of a crack. Patient was [place] acted by police after apparently she has been telling them that she is being followed by a truong with a shotgun to want to kill her. She has a history of schizophrenia. She seems to be delusional. She denies any medical issues. She states that she takes her Zyprexa. She denies any injuries. She denies any medical issues. She has been here before for schizophrenia in the past. Allergies to haloperidol and aspirin. She denies any drug use but states having alcohol in the past. No cuts. No suicidal or homicidal ideation. Per police she has been very delusional stating that she is being followed. She appears to be very paranoid. PFSH Past Medical History Hx Anticoagulant Therapy: No Asthma: No Bipolar Disorder: Yes Anxiety: Yes Depression: Yes Cardiovascular Problems: No Chemotherapy: No Cerebrovascular Accident: No Diabetes: No Diminished Hearing: No Endocrine: No Gastrointestinal Disorders: Yes Genitourinary: No Immune Disorder: No Musculoskeletal: No Neurologic: Yes Psychiatric: Yes (SCHIZOAFFECTIVE) Reproductive: No Respiratory: No Immunizations Current: Yes Pneumonia: Yes Schizophrenia: Yes (SCHIZOAFFECTIVE) Seizures: Yes (WITHDRAWAL) Thyroid Disease: No Menopausal: Yes : 2 Para: 1 Past Surgical History Section: Yes Gynecologic Surgery: Yes (C SECTIONS X2) Hysterectomy: No Oral Surgery: Yes (JAW SURGERY) Other Surgery: Yes (jaw, ) Social History Alcohol Use: Yes Tobacco Use: Yes Substance Use: Yes (CRACK) Allergies-Medications (Allergen,Severity, Reaction): Coded Allergies: aspirin (Unverified Allergy, Severe, Swelling, 11/07/17) haloperidol (Unverified Adverse Reaction, Unknown, 11/07/17) Reported Meds & Prescriptions Reported Meds & Active Scripts Active No Active Prescriptions or Reported Medications Review of Systems Except as stated in HPI: all other systems reviewed are Neg Physical Exam Narrative GENERAL: SKIN: Warm and dry. HEAD: Atraumatic. Normocephalic. EYES: Pupils equal and round. No scleral icterus. No injection or drainage. ENT: No nasal bleeding or discharge. Mucous membranes pink and moist. Tongue is midline. No uvula deviation NECK: Trachea midline. No JVD. CARDIOVASCULAR: Regular rate and rhythm. No murmurs, S3, S4. RESPIRATORY: No accessory muscle use. Clear to auscultation. Breath sounds equal bilaterally. GASTROINTESTINAL: Abdomen soft, non-tender, nondistended. Hepatic and splenic margins not palpable. MUSCULOSKELETAL: Extremities without clubbing, cyanosis, or edema. No obvious deformities. Full range of motion of the upper and lower extremities bilaterally. 2+ pulses bilaterally. NEUROLOGICAL: Awake and alert. No obvious cranial nerve deficits. Motor grossly within normal limits. Five out of 5 muscle strength in the arms and legs. Normal speech. PSYCHIATRIC: Paranoid mood and affect; insight and judgment normal. Data Data Last Documented VS Vital Signs Date Time Temp Pulse Resp B/P (MAP) Pulse Ox O2 Delivery O2 Flow Rate FiO2 11/07/17 16:47 98.2 73 17 116/73 (87) 100 Orders Orders Complete Blood Count With Diff (11/07/17 17:09) Comprehensive Metabolic Panel (11/07/17 17:09) Thyroid Stimulating Hormone (11/07/17 17:09) Psych Screen (11/07/17 17:09) Drug Screen, Random Urine (11/07/17 17:09) Alcohol (Ethanol) (11/07/17 17:09) Salicylates (Aspirin) (11/07/17 17:09) Tylenol (Acetaminophen) (11/07/17 17:09) Labs Laboratory Tests Test 11/07/17 17:09 White Blood Count 5.7 TH/MM3 Red Blood Count 4.20 MIL/MM3 Hemoglobin 13.6 GM/DL Hematocrit 40.8 % Mean Corpuscular Volume 97.0 FL Mean Corpuscular Hemoglobin 32.3 PG Mean Corpuscular Hemoglobin Concent 33.3 % Red Cell Distribution Width 13.8 % Platelet Count 209 TH/MM3 Mean Platelet Volume 8.9 FL Neutrophils (%) (Auto) 63.4 % Lymphocytes (%) (Auto) 24.1 % Monocytes (%) (Auto) 8.9 % Eosinophils (%) (Auto) 3.1 % Basophils (%) (Auto) 0.5 % Neutrophils # (Auto) 3.6 TH/MM3 Lymphocytes # (Auto) 1.4 TH/MM3 Monocytes # (Auto) 0.5 TH/MM3 Eosinophils # (Auto) 0.2 TH/MM3 Basophils # (Auto) 0.0 TH/MM3 CBC Comment DIFF FINAL Differential Comment Blood Urea Nitrogen 11 MG/DL Creatinine 0.71 MG/DL Random Glucose 103 MG/DL Albumin 3.9 GM/DL Calcium Level 9.0 MG/DL Aspartate Amino Transf (AST/SGOT) 19 U/L Sodium Level 139 MEQ/L Potassium Level 4.2 MEQ/L Chloride Level 108 MEQ/L Carbon Dioxide Level 25.2 MEQ/L Anion Gap 6 MEQ/L Estimat Glomerular Filtration Rate 91 ML/MIN Salicylates Level 3.6 MG/DL MDM Medical Decision Making Medical Screen Exam Complete: Yes Emergency Medical Condition: Yes Medical Record Reviewed: Yes Interpretation(s) CBC & BMP Diagram 11/07/17 17:09 Albumin 3.9, Calcium Level 9.0, Aspartate Amino Transf (AST/SGOT) 19 Differential Diagnosis Depression versus suicidal ideation versus anxiety versus adjustment disorder versus mood disorder versus bipolar disorder versus schizophrenia versus paranoid disorder versus psychosis versus substance abuse versus alcohol abuse versus alcohol induced psychosis versus homicidality addition versus cutting versus personality disorder Narrative Course 42-year-old female that presents to the ED for evaluation of psych. Patient was properly examined and was found to have signs and symptoms consistent with psychiatric illness. No sign of acute medical distress. Labs were drawn. Patient was medically clear. Okay to be seen by psych. Mental health screening was discussed with the patient. Diagnosis Primary Impression: Schizoaffective disorder, bipolar type Scripts No Active Prescriptions or Reported Meds Real Bishop Nov 07, 2017 17:57
[2017-11-07 18:09] LABS: ALBUMIN 3.9 GM/DL (3.4-5.0); AST (GOT) 19 U/L (15-37); BICARBONATE 25.2 MEQ/L (21.0-32.0); BLOOD UREA NITROGEN 11 MG/DL (7-18); CHLORIDE 108 MEQ/L (98-107); CREATININE 0.71 MG/DL (0.50-1.00); GLOMERULAR FILTRATION RATE 91 ML/MIN (>89); GLUCOSE,RANDOM 103 MG/DL (74-106); SODIUM (NA) 139 MEQ/L (136-145)
[2017-11-07 18:25] VITALS: BP 112/58; PULSE 65; RESP 16; TEMP 98.5; O2SAT 100
[2017-11-07 18:33] LABS: ACETAMINOPHEN LESS THAN 2.0 MCG/ML (10.0-30.0); ALKALINE PHOSPHATASE 91 U/L (45-117); ALT (GPT) 25 U/L (10-53); TOTAL BILIRUBIN ADULT 0.2 MG/DL (0.2-1.0); TOTAL PROTEIN 7.4 GM/DL (6.4-8.2)
[2017-11-07 21:36] VITALS: BP 101/54; PULSE 61; RESP 18; TEMP 98.6; O2SAT 95
[2017-11-08 00:28] VITALS: BP 110/52; PULSE 60; RESP 16; TEMP 98; O2SAT 98
[2017-11-08 04:53] VITALS: BP 105/55; PULSE 54; RESP 16; TEMP 98.2; O2SAT 95
--- NOTE | 2017-11-08 11:03 | PD ---
History of Present Illness Chief Complaint: Psychiatric Symptoms Time Seen by Provider: 10:35 Travel History International Travel<30 Days: No Contact w/Intl Traveler<30days: No Known affected area: No Legal Status Legal Status: [place] Act [place] Act Signed By: Zamzam Linder History of Present Illness: History of Present Illness HPI 42-year-old female with record history of schizoaffective disorder, substance- induced mood disorder, who presents to [facility] under a [place] act initiated by law enforcement. The report alleges that the patient contacted the police to report to them that she had an invisible shotgun. She also stated that she wants to kill herself by shooting her head off because she is tired of living. The patient was found to have no weapons on her. The patient reported to the ED screener that she had been feeling suicidal for the past 3 days with no plan reported. At the time she denied having any hallucinations. The patient was monitor and secure environment and she presented no behavioral dysregulation and no suicidality. As per nursing reports she did not appear to be responding to internal stimuli. Electronic medical record is reviewed. The patient has several admissions to [facility] with the last one being in July 2016. Current toxicology is negative for any substances of abuse. Patient is seen in J pod. She was asleep but awakens easily. She is calm. When asked reason for her visit to the ED she states while looking back over her shoulder" I am seen invisible people". The patient however does not appear to be experiencing any hallucinations and does not appear internally preoccupied at all. She is alert, oriented. Her speech is clear, logical and goal directed and is of a normal rate and tone. There is no marck or hypomania. The patient tells me that she was recently discharged from [facility] for treatment of alcohol dependence. She came back to [place] within the last couple of days and states "I have [place] on the beach". She tells me that she had a drink 3 days ago. She states that she has been prescribed psychiatric medication but has not had any medications in the last couple of weeks. She is unable to remember the medication that was prescribed to her. The patient does not report suicidal or homicidal ideation, intent or plan at this time. She was engaging very well with this policy writer sales, answering all questions appropriately and providing information until we begin to discuss possible discharge. It is upon discussion of possible disposition that she refused to answer any more questions. PFSH Past Medical History Hx Anticoagulant Therapy: No Asthma: No Bipolar Disorder: Yes Anxiety: Yes Depression: Yes Cancer: No Cardiovascular Problems: No Chemotherapy: No Cerebrovascular Accident: No Diabetes: No Diminished Hearing: No Endocrine: No Gastrointestinal Disorders: Yes Genitourinary: No Headaches: No Immune Disorder: No Implanted Vascular Access Dvce: No Musculoskeletal: No Neurologic: Yes Psychiatric: Yes (SCHIZOAFFECTIVE) Reproductive: No Respiratory: No Immunizations Current: Yes Pneumonia: Yes Schizophrenia: Yes (SCHIZOAFFECTIVE) Seizures: Yes (WITHDRAWAL) Thyroid Disease: No ?: Unknown Menopausal: Yes : 2 Para: 1 Past Surgical History Section: Yes Gynecologic Surgery: Yes (C SECTIONS X2) Hysterectomy: No Oral Surgery: Yes (JAW SURGERY) Other Surgery: Yes (jaw, ) Psychiatric History Psychiatric History Hx Psychiatric Treatment: PER [facility], PATIENT HAS A HISTORY OF SCHIZOPHRENIA, BIPOLAR DISORDER, DEPRESSION, AND ANXIETY. Patient has had several admissions here. She also reports admissions to [facility], as [facility]. PATIENT WAS LAST ADMITTED TO [facility] FROM 07/31/16 TO 08/01/16 FOR SUICIDAL IDEATION. History of Inpatient Treatment: Yes Guns or firearms in home: No Social History Patient is . Has 8 children and 4 grandchildren. She is homeless and states she has been homeless for the past year. She has been applying for disability and [employer]. She recently came back to the [facility]. She states she was raised in [place] Hx Alcohol Use: Yes Hx Tobacco Use: Yes Hx Substance Use: Yes (CRACK) Substance Use Type: Alcohol, Crack, Cocaine Other Substances Used: SINCE AGE 18 PER REPORT Hx of Substance Use Treatment: Yes (Most recently at [facility] in [place]) Family Psychiatric History Negative Allergies-Medications (Allergen,Severity, Reaction): Coded Allergies: aspirin (Unverified Allergy, Severe, Swelling, 11/07/17) haloperidol (Unverified Adverse Reaction, Unknown, 11/07/17) Reported Meds & Prescriptions Reported Meds & Active Scripts Active No Active Prescriptions or Reported Medications Review of Systems Psychiatric: DENIES: Anxiety, Confusion, Mood changes, Depression, Hallucinations, Agitation, Suicidal Ideation, Homicidal Ideation, Delusions Except as stated in HPI: all other systems reviewed are Neg Mental Status Examination Appearance: Appropriate (Dressed in [facility], maintaining basic hygiene , sunburned) Consciousness: Alert Orientation: x4 Motor Activity: Normal gait Speech: Unremarkable Language: Adequate Fund of Knowledge: Adequate Attention and Concentration: Adequate Memory: Unremarkable Mood: Appropriate Affect: Appropriate Thought Process & Associations: Intact, Logical, Goal directed Thought Content: Appropriate Hallucination Type: None Delusion Type: None Suicidal Ideation: No Suicidal Plan: No Suicidal Intention: No Homicidal Ideation: No Homicidal Plan: No Homicidal Intention: No Insight: Poor Judgment: Adequate MDM Medical Decision Making Medical Record Reviewed: Yes Assessment/Plan 42-year-old female with record history of schizoaffective disorder, substance- induced mood disorder, who presents to [facility] under a [place] act initiated by law enforcement. The report alleges that the patient contacted the police to report to them that she had an invisible shotgun. She also stated that she wants to kill herself by shooting her head off because she is tired of living. The patient was found to have no weapons on her. The patient reported to the ED screener that she had been feeling suicidal for the past 3 days with no plan reported. At the time she denied having any hallucinations. The patient was monitor and secure environment and she presented no behavioral dysregulation and no suicidality. As per nursing reports she did not appear to be responding to internal stimuli. The patient presented no criteria to remain under the [place] act. There is no suicidal or homicidal ideation, intent or plan. She presented conflicting information to different people during the evaluation process. She reported to the law enforcement that she had an invisible shotgun and mentioned nothing about having hallucinations. She denied to psych screener that she was having any hallucinations as well but reporting she will had been feeling suicidal for 3 days. The patient at this time appears to be overemphasizing her symptoms and at times even malingering her symptoms in order to obtain detention. Does not meet [place] act criteria. The [place] act is lifted. Psychiatrically clear for discharge from the ED. Instructed to [facility] with [facility] Orders Orders Complete Blood Count With Diff (11/07/17 17:09) Comprehensive Metabolic Panel (11/07/17 17:09) Thyroid Stimulating Hormone (11/07/17 17:09) Psych Screen (11/07/17 17:09) Drug Screen, Random Urine (11/07/17 17:09) Alcohol (Ethanol) (11/07/17 17:09) Salicylates (Aspirin) (11/07/17 17:09) Tylenol (Acetaminophen) (11/07/17 17:09) Diet Regular Basic (11/08/17 Breakfast) Diet Regular Basic (11/08/17 Lunch) Results Vital Signs Date Time Temp Pulse Resp B/P (MAP) Pulse Ox O2 Delivery O2 Flow Rate FiO2 11/08/17 04:53 98.2 54 16 105/55 (72) 95 Room Air 11/08/17 00:28 98.0 60 16 110/52 (71) 98 Room Air 11/07/17 21:36 98.6 61 18 101/54 (70) 95 Room Air 11/07/17 18:25 98.5 65 16 112/58 (76) 100 Room Air 11/07/17 16:47 98.2 73 17 116/73 (87) 100 Laboratory Tests Test 11/07/17 17:09 White Blood Count 5.7 Red Blood Count 4.20 Hemoglobin 13.6 Hematocrit 40.8 Mean Corpuscular Volume 97.0 Mean Corpuscular Hemoglobin 32.3 Mean Corpuscular Hemoglobin Concent 33.3 Red Cell Distribution Width 13.8 Platelet Count 209 Mean Platelet Volume 8.9 Neutrophils (%) (Auto) 63.4 Lymphocytes (%) (Auto) 24.1 Monocytes (%) (Auto) 8.9 Eosinophils (%) (Auto) 3.1 Basophils (%) (Auto) 0.5 Neutrophils # (Auto) 3.6 Lymphocytes # (Auto) 1.4 Monocytes # (Auto) 0.5 Eosinophils # (Auto) 0.2 Basophils # (Auto) 0.0 CBC Comment DIFF FINAL Differential Comment Blood Urea Nitrogen 11 Creatinine 0.71 Random Glucose 103 Total Protein 7.4 Albumin 3.9 Calcium Level 9.0 Alkaline Phosphatase 91 Aspartate Amino Transf (AST/SGOT) 19 Alanine Aminotransferase (ALT/SGPT) 25 Total Bilirubin 0.2 Sodium Level 139 Potassium Level 4.2 Chloride Level 108 Carbon Dioxide Level 25.2 Anion Gap 6 Estimat Glomerular Filtration Rate 91 Thyroid Stimulating Hormone 3rd Gen 1.210 Salicylates Level 3.6 Urine Opiates Screen NEG Acetaminophen Level LESS THAN 2.0 Urine Barbiturates Screen NEG Urine Amphetamines Screen NEG Urine Benzodiazepines Screen NEG Urine Cocaine Screen NEG Urine Cannabinoids Screen NEG Ethyl Alcohol Level LESS THAN 3 Diagnosis Primary Impression: Schizoaffective disorder, bipolar type Additional Impression: Malingering Psychiatrically Cleared: Yes Med/ Other Pt Specific Info: No Meds Exist/No RX given Prescriptions No Active Prescriptions or Reported Meds Disposition: 01 DISCHARGE HOME Condition: Stable Problem Qualifiers Johnna Flynn Nov 08, 2017 11:03
--- NOTE | 2017-11-08 11:08 | PD ---
Physical Exam Time Seen by Provider: 11:07 CECY Melendez has evaluated the patient, lifted the [place] act and cleared the patient for discharge. Data Data Last Documented VS Vital Signs Date Time Temp Pulse Resp B/P (MAP) Pulse Ox O2 Delivery O2 Flow Rate FiO2 11/08/17 04:53 98.2 54 16 105/55 (72) 95 Room Air Orders Orders Complete Blood Count With Diff (11/07/17 17:09) Comprehensive Metabolic Panel (11/07/17 17:09) Thyroid Stimulating Hormone (11/07/17 17:09) Psych Screen (11/07/17 17:09) Drug Screen, Random Urine (11/07/17 17:09) Alcohol (Ethanol) (11/07/17 17:09) Salicylates (Aspirin) (11/07/17 17:09) Tylenol (Acetaminophen) (11/07/17 17:09) Diet Regular Basic (11/08/17 Breakfast) Diet Regular Basic (11/08/17 Lunch) Labs Laboratory Tests Test 11/07/17 17:09 White Blood Count 5.7 TH/MM3 Red Blood Count 4.20 MIL/MM3 Hemoglobin 13.6 GM/DL Hematocrit 40.8 % Mean Corpuscular Volume 97.0 FL Mean Corpuscular Hemoglobin 32.3 PG Mean Corpuscular Hemoglobin Concent 33.3 % Red Cell Distribution Width 13.8 % Platelet Count 209 TH/MM3 Mean Platelet Volume 8.9 FL Neutrophils (%) (Auto) 63.4 % Lymphocytes (%) (Auto) 24.1 % Monocytes (%) (Auto) 8.9 % Eosinophils (%) (Auto) 3.1 % Basophils (%) (Auto) 0.5 % Neutrophils # (Auto) 3.6 TH/MM3 Lymphocytes # (Auto) 1.4 TH/MM3 Monocytes # (Auto) 0.5 TH/MM3 Eosinophils # (Auto) 0.2 TH/MM3 Basophils # (Auto) 0.0 TH/MM3 CBC Comment DIFF FINAL Differential Comment Blood Urea Nitrogen 11 MG/DL Creatinine 0.71 MG/DL Random Glucose 103 MG/DL Total Protein 7.4 GM/DL Albumin 3.9 GM/DL Calcium Level 9.0 MG/DL Alkaline Phosphatase 91 U/L Aspartate Amino Transf (AST/SGOT) 19 U/L Alanine Aminotransferase (ALT/SGPT) 25 U/L Total Bilirubin 0.2 MG/DL Sodium Level 139 MEQ/L Potassium Level 4.2 MEQ/L Chloride Level 108 MEQ/L Carbon Dioxide Level 25.2 MEQ/L Anion Gap 6 MEQ/L Estimat Glomerular Filtration Rate 91 ML/MIN Thyroid Stimulating Hormone 3rd Gen 1.210 uIU/ML Salicylates Level 3.6 MG/DL Urine Opiates Screen NEG Acetaminophen Level LESS THAN 2.0 MCG/ML Urine Barbiturates Screen NEG Urine Amphetamines Screen NEG Urine Benzodiazepines Screen NEG Urine Cocaine Screen NEG Urine Cannabinoids Screen NEG Ethyl Alcohol Level LESS THAN 3 MG/DL MDM Supervised Visit with [facility]VIO: No Narrative Course CECY Oropeza has evaluated the patient, lifted the [place] act and cleared the patient for discharge. Patient contracts safety. Denies suicidal or homicidal ideations. Patient will be provided community resource packet to [facility] for follow-up. Has friends and family for support. Patient was medically cleared by alternate provider prior to psych screening. Patient has been evaluated by psychiatry and and is now cleared for discharge. Diagnosis Primary Impression: Schizoaffective disorder, bipolar type Additional Impression: Malingering Referrals: [facility] (Out patient) [facility] Primary Care Physician Psychiatrist Leroy [facility] Patient Instructions: Bipolar Disorder (ED), General Instructions, Schizoaffective Disorder (ED) Additional Instruction: Contract safety to your self and others Follow-up with psychiatry Follow-up with primary care provider Follow-up with Aniket Hyde Return to the emergency department immediately with worsening of symptoms Med/Other Pt SpecificInfo: No Change to Meds, No Meds Exist/No RX given Scripts No Active Prescriptions or Reported Meds Disposition: 01 DISCHARGE HOME Condition: Stable Conchita Neal Nov 08, 2017 11:08
== END 2017-11-08 11:45 | disposition home or self-care (01) ==
LOC: NEPJ 16:24
DX: F25.0 Schizoaffective disorder, bipolar type (principal); Z76.5 Malingerer [conscious simulation]; F41.9 Anxiety disorder, unspecified; Z59.0 Homelessness; Z88.8 Allergy status to other drugs, medicaments and biological substances; Z72.0 Tobacco use
CPT/HCPCS: 80053; 80307; 84443; 85025; 99283

== ENCOUNTER 2017-11-28 14:03 | Emergency (ER) | payer OTHER ==
[~2017-11-28] VITALS: Ht 154.9 cm; Wt 52.0 kg
[2017-11-28 14:11] VITALS: BP 115/55; PULSE 75; RESP 18; TEMP 98.3; O2SAT 100
[2017-11-28] MEDS ORDERED: LORazepam 1 MG TAB PO ONE (14:30)
[2017-11-28] MEDS ORDERED: SERO100T PO (14:36)
[2017-11-28] MEDS ORDERED: ZYPR20TA PO (14:36)
[2017-11-28] MEDS ORDERED: LORA-474 PO (14:36)
[2017-11-28] MEDS ORDERED: LEVE500 (14:36)
[2017-11-28] MEDS ORDERED: DILA100C PO (14:36)
[2017-11-28] MEDS ORDERED: TRAZ50TA12 PO (14:36)
--- NOTE | 2017-11-28 15:24 | PD ---
HPI Chief Complaint: Psychiatric Symptoms Time Seen by Provider: 14:23 Travel History International Travel<30 days: No Contact w/Intl Traveler<30days: No Traveled to known affect area: No History of Present Illness HPI 42-year-old female presents emergency department with suicidal ideation. The patient has reported history of bipolar disorder, cocaine use disorder, who was dropped off by [place] police department at our emergency department. The patient reported to triage staff that she wanted to go to [facility] for treatment and that she felt suicidal with a plan to overdose on pills. Patient was not [place] acted. She is allergic to aspirin and haloperidol PFSH Past Medical History Hx Anticoagulant Therapy: No Asthma: No Bipolar Disorder: Yes Anxiety: Yes Depression: Yes Cancer: No Cardiovascular Problems: No Chemotherapy: No Cerebrovascular Accident: No Diabetes: No Diminished Hearing: No Endocrine: No Gastrointestinal Disorders: Yes Genitourinary: No Headaches: No Immune Disorder: No Implanted Vascular Access Dvce: No Musculoskeletal: No Neurologic: Yes Psychiatric: Yes (SCHIZOAFFECTIVE) Reproductive: No Respiratory: No Immunizations Current: Yes Pneumonia: Yes Schizophrenia: Yes (SCHIZOAFFECTIVE) Seizures: Yes (WITHDRAWAL) Thyroid Disease: No Menopausal: Yes : 2 Para: 1 Past Surgical History Section: Yes Gynecologic Surgery: Yes (C SECTIONS X2) Hysterectomy: No Oral Surgery: Yes (JAW SURGERY) Other Surgery: Yes (jaw, ) Social History Alcohol Use: Yes Tobacco Use: Yes Substance Use: Yes (CRACK) Allergies-Medications (Allergen,Severity, Reaction): Coded Allergies: aspirin (Unverified Allergy, Severe, Swelling, 11/07/17) haloperidol (Unverified Adverse Reaction, Unknown, 11/07/17) Reported Meds & Prescriptions Reported Meds & Active Scripts Active Reported Trazodone (Trazodone HCl) 50 Mg Tab 50 Mg PO HS Seroquel (Quetiapine Fumarate) 100 Mg Tab 100 Mg PO HS Zyprexa (Olanzapine) 20 Mg Tab 20 Mg PO DAILY Ativan (Lorazepam) 1 Mg Tab 1 Mg PO Q6H PRN Keppra (Levetiracetam) 500 Mg Tab 500 Mg DAILY Dilantin (Phenytoin Extended) 100 Mg Cap 300 Mg PO DAILY Review of Systems Except as stated in HPI: all other systems reviewed are Neg General / Constitutional: No: Fever Eyes: No: Visual changes HENT: No: Headaches Cardiovascular: No: Chest Pain or Discomfort Respiratory: No: Shortness of Breath Gastrointestinal: No: Abdominal Pain Genitourinary: No: Dysuria Musculoskeletal: No: Pain Skin: No Rash Neurologic: No: Weakness Psychiatric: No: Depression Endocrine: No: Polydipsia Hematologic/Lymphatic: No: Easy Bruising Physical Exam Narrative GENERAL: Patient appears somewhat anxious otherwise in no acute distress per SKIN: Warm and dry. Normal color. Normal turgor. No signs of IV drug use. No cellulitis. HEAD: Atraumatic. Normocephalic. EYES: Pupils equal and round. No scleral icterus. No injection or drainage. ENT: No nasal bleeding or discharge. Mucous membranes pink and moist. Pharynx is clear. Airways patent NECK: Trachea midline. Supple nontender CARDIOVASCULAR: Regular rate and rhythm. RESPIRATORY: No accessory muscle use. Clear to auscultation. Breath sounds equal bilaterally. GASTROINTESTINAL: Abdomen soft, non-tender, nondistended. Hepatic and splenic margins not palpable. MUSCULOSKELETAL: Extremities without clubbing, cyanosis, or edema. No obvious deformities. NEUROLOGICAL: Awake and alert. No obvious cranial nerve deficits. Motor grossly within normal limits. Five out of 5 muscle strength in the arms and legs. Normal speech. PSYCHIATRIC: Appropriate mood and affect; insight and judgment normal. Data Data Last Documented VS Vital Signs Date Time Temp Pulse Resp B/P (MAP) Pulse Ox O2 Delivery O2 Flow Rate FiO2 11/28/17 18:55 11/28/17 17:57 98.5 84 16 100 Room Air Orders Orders Complete Blood Count With Diff (11/28/17 14:28) Comprehensive Metabolic Panel (11/28/17 14:28) Thyroid Stimulating Hormone (11/28/17 14:28) Urinalysis - C+S If Indicated (11/28/17 14:28) Psych Screen (11/28/17 14:28) Drug Screen, Random Urine (11/28/17 14:28) Alcohol (Ethanol) (11/28/17 14:28) Lorazepam (Ativan) (11/28/17 14:30) Ed Discharge Order (11/28/17 17:41) Labs Laboratory Tests Test 11/28/17 14:45 11/28/17 14:50 Urine Color LIGHT-YELLOW Urine Turbidity HAZY Urine pH 5.5 Urine Specific Max 1.019 Urine Protein NEG mg/dL Urine Glucose (UA) NEG mg/dL Urine Ketones NEG mg/dL Urine Occult Blood NEG Urine Nitrite NEG Urine Bilirubin NEG Urine Urobilinogen LESS THAN 2.0 MG/DL Urine Leukocyte Esterase LARGE Urine WBC 4 /hpf Urine Squamous Epithelial Cells 16 /hpf Microscopic Urinalysis Comment CULT NOT INDICATED Urine Opiates Screen NEG Urine Barbiturates Screen NEG Urine Amphetamines Screen NEG Urine Benzodiazepines Screen NEG Urine Cocaine Screen POS Urine Cannabinoids Screen NEG White Blood Count 4.6 TH/MM3 Red Blood Count 4.01 MIL/MM3 Hemoglobin 13.0 GM/DL Hematocrit 37.6 % Mean Corpuscular Volume 93.8 FL Mean Corpuscular Hemoglobin 32.3 PG Mean Corpuscular Hemoglobin Concent 34.5 % Red Cell Distribution Width 13.8 % Platelet Count 176 TH/MM3 Mean Platelet Volume 9.1 FL Neutrophils (%) (Auto) 65.6 % Lymphocytes (%) (Auto) 24.4 % Monocytes (%) (Auto) 7.2 % Eosinophils (%) (Auto) 2.4 % Basophils (%) (Auto) 0.4 % Neutrophils # (Auto) 3.0 TH/MM3 Lymphocytes # (Auto) 1.1 TH/MM3 Monocytes # (Auto) 0.3 TH/MM3 Eosinophils # (Auto) 0.1 TH/MM3 Basophils # (Auto) 0.0 TH/MM3 CBC Comment DIFF FINAL Differential Comment Blood Urea Nitrogen 15 MG/DL Creatinine 0.70 MG/DL Random Glucose 83 MG/DL Total Protein 6.7 GM/DL Albumin 3.6 GM/DL Calcium Level 8.7 MG/DL Alkaline Phosphatase 82 U/L Aspartate Amino Transf (AST/SGOT) 22 U/L Alanine Aminotransferase (ALT/SGPT) 23 U/L Total Bilirubin 0.2 MG/DL Sodium Level 142 MEQ/L Potassium Level 4.0 MEQ/L Chloride Level 108 MEQ/L Carbon Dioxide Level 22.7 MEQ/L Anion Gap 11 MEQ/L Estimat Glomerular Filtration Rate 93 ML/MIN Thyroid Stimulating Hormone 3rd Gen 0.641 uIU/ML Ethyl Alcohol Level LESS THAN 3 MG/DL MDM Medical Decision Making Medical Screen Exam Complete: Yes Emergency Medical Condition: Yes Medical Record Reviewed: Yes Differential Diagnosis Polysubstance abuse. Depression. Suicidal. Narrative Course Psychiatric labs ordered per psychiatric protocol. Psych screen is ordered. Patient is medically cleared for psychiatric evaluation. Condition: Stable Tony Rosales Nov 28, 2017 15:24
[2017-11-28 15:26] LABS: BASOPHIL % 0.4 % (0.0-2.0); EOSINOPHIL # 0.1 TH/MM3 (0-0.4); EOSINOPHIL % 2.4 % (0.0-4.0); HEMATOCRIT 37.6 % (35.0-46.0); LYMPH % 24.4 % (9.0-44.0); LYMPHOCYTE # 1.1 TH/MM3 (1.0-4.8); MEAN CELL VOLUME 93.8 FL (80.0-100.0); MEAN CORPUSCULAR HEMOGLOBIN 32.3 PG (27.0-34.0); MEAN CORPUSCULAR HGB CONC 34.5 % (32.0-36.0); MEAN PLATELET VOLUME 9.1 FL (7.0-11.0); MONO % 7.2 % (0.0-8.0); MONOCYTE # 0.3 TH/MM3 (0-0.9); NEUT % 65.6 % (16.0-70.0); PLATELET COUNT 176 TH/MM3 (150-450); RED BLOOD COUNT 4.01 MIL/MM3 (4.00-5.30); RED CELL DISTRIBUTION WIDTH 13.8 % (11.6-17.2); WHITE BLOOD COUNT 4.6 TH/MM3 (4.0-11.0)
[2017-11-28 15:35] LABS: BILIRUBIN, URINE NEG (NEG); BLOOD, URINE NEG (NEG); GLUCOSE,URINE NEG (NEG); KETONE, URINE NEG (NEG); NITRITE,URINE NEG (NEG); PH, URINE 5.5 (5.0-8.5); SQUAMOUS EPITHELIAL CELL URINE 16 /hpf (0-5); URINE COLOR LIGHT-YELLOW (YELLW/STRAW); URINE LEUKOCYTE ESTERASE LARGE (NEG)
[2017-11-28 15:39] LABS: ALBUMIN 3.6 GM/DL (3.4-5.0); ALT (GPT) 23 U/L (10-53); AST (GOT) 22 U/L (15-37); BICARBONATE 22.7 MEQ/L (21.0-32.0); BLOOD UREA NITROGEN 15 MG/DL (7-18); CALCIUM 8.7 MG/DL (8.5-10.1); CHLORIDE 108 MEQ/L (98-107); GLOMERULAR FILTRATION RATE 93 ML/MIN (>89); GLUCOSE,RANDOM 83 MG/DL (74-106); SODIUM (NA) 142 MEQ/L (136-145)
[2017-11-28 15:49] LABS: ALKALINE PHOSPHATASE 82 U/L (45-117); TOTAL BILIRUBIN ADULT 0.2 MG/DL (0.2-1.0); TOTAL PROTEIN 6.7 GM/DL (6.4-8.2)
[2017-11-28 15:55] VITALS: BP 118/53; PULSE 75; RESP 18; TEMP 98.4; O2SAT 100
--- NOTE | 2017-11-28 17:27 | PD ---
History of Present Illness Chief Complaint: Psychiatric Symptoms Time Seen by Provider: 17:15 Travel History International Travel<30 Days: No Contact w/Intl Traveler<30days: No Known affected area: No Legal Status Legal Status: Voluntary History of Present Illness: History of Present Illness HPI 42-year-old, single, homeless female with reported history of bipolar disorder, cocaine use disorder, who was dropped off by [place] police department at our emergency department. The patient reported to triage staff that she wanted to go to [facility] for treatment and that she felt suicidal with a plan to overdose on pills. Patient did not make an attempt to harm herself and has no access to pills. Electronic medical record is reviewed. The patient was seen in the emergency department November 07 with reported hallucinations. After observation and evaluation it was determined that the patient did not meet criteria for inpatient treatment and was discharged.. Current toxicology is positive for cocaine which is her drug of choice. Patient is seen in [facility]. She is asleep but awakens easily. When asked why she came to the emergency department she states I was feeling suicidal and I want to go to [facility] or any other facility but the police brought me here. She does not report any hallucinations, no delusions, does not appear to be internally stimulated. No paranoia. The patient does not verbalize any symptoms of depression or anxiety. She becomes upset when I ask about current substance use . I share her current toxicology results and attempt to explain to her that her continued use of cocaine may be a contributing factor to her reported mood symptoms. The patient once again states that she wants to go to [facility] and accepts bus passes to get there when they are offered to her. Patient also requests a meal before she is discharged. Remainder of psychiatric review of system is negative PFSH Past Medical History Hx Anticoagulant Therapy: No Asthma: No Bipolar Disorder: Yes Anxiety: Yes Depression: Yes Cancer: No Cardiovascular Problems: No Chemotherapy: No Cerebrovascular Accident: No Diabetes: No Diminished Hearing: No Endocrine: No Gastrointestinal Disorders: Yes Genitourinary: No Headaches: No Immune Disorder: No Implanted Vascular Access Dvce: No Musculoskeletal: No Neurologic: Yes Psychiatric: Yes (SCHIZOAFFECTIVE) Reproductive: No Respiratory: No Immunizations Current: Yes Pneumonia: Yes Schizophrenia: Yes (SCHIZOAFFECTIVE) Seizures: Yes (WITHDRAWAL) Thyroid Disease: No Menopausal: Yes : 2 Para: 1 Past Surgical History Section: Yes Gynecologic Surgery: Yes (C SECTIONS X2) Hysterectomy: No Oral Surgery: Yes (JAW SURGERY) Other Surgery: Yes (jaw, ) Psychiatric History Psychiatric History Hx Psychiatric Treatment: PER [place] RECOR[facility], PATIENT HAS A HISTORY OF BIPOLAR DISORDER as well as substance use. Patient has had several admissions here. She also reports admissions to [facility]. Poor compliance with outpatient treatment. No previous suicide attempts are reported. She does endorse nonsuicidal self-injurious behavior mostly cutting. PATIENT WAS LAST ADMITTED TO [facility] FROM 07/31/16 TO 08/01/16 FOR SUICIDAL IDEATION. History of Inpatient Treatment: Yes Guns or firearms in home: No Social History Patient is . She is currently homeless. She works cleaning offices or residences. Has pending social security disability application. She has 8 children but has no contact with them Hx Alcohol Use: Yes Hx Tobacco Use: Yes Hx Substance Use: Yes (CRACK) Substance Use Type: Alcohol, Crack, Cocaine Other Substances Used: SINCE AGE 18 PER REPORT Hx of Substance Use Treatment: Yes Family Psychiatric History History of bipolar disorder in her family Allergies-Medications (Allergen,Severity, Reaction): Coded Allergies: aspirin (Unverified Allergy, Severe, Swelling, 11/07/17) haloperidol (Unverified Adverse Reaction, Unknown, 11/07/17) Reported Meds & Prescriptions Reported Meds & Active Scripts Active Reported Trazodone (Trazodone HCl) 50 Mg Tab 50 Mg PO HS Seroquel (Quetiapine Fumarate) 100 Mg Tab 100 Mg PO HS Zyprexa (Olanzapine) 20 Mg Tab 20 Mg PO DAILY Ativan (Lorazepam) 1 Mg Tab 1 Mg PO Q6H PRN Keppra (Levetiracetam) 500 Mg Tab 500 Mg DAILY Dilantin (Phenytoin Extended) 100 Mg Cap 300 Mg PO DAILY Review of Systems Psychiatric: COMPLAINS OF: Suicidal Ideation Except as stated in HPI: all other systems reviewed are Neg Mental Status Examination Appearance: Appropriate (Sunburned. Maintaining basic hygiene.) Consciousness: Alert Orientation: x4 Motor Activity: Normal gait Speech: Unremarkable Language: Adequate Fund of Knowledge: Adequate Attention and Concentration: Adequate Memory: Unremarkable Mood: Appropriate Affect: Blunt Thought Process & Associations: Intact, Logical, Goal directed Thought Content: Appropriate Hallucination Type: None Delusion Type: None Suicidal Ideation: Yes Suicidal Plan: No Suicidal Intention: No Homicidal Ideation: No Homicidal Plan: No Homicidal Intention: No Insight: Poor Judgment: Impulsive MDM Medical Decision Making Medical Record Reviewed: Yes Assessment/Plan 42-year-old, single, homeless female with reported history of bipolar disorder, cocaine use disorder, who was dropped off by [place] police department at our emergency department. The patient reported to triage staff that she wanted to go to [facility] for treatment and that she felt suicidal with a plan to overdose on pills. Patient did not make an attempt to harm herself and has no access to pills. The patient tells me as well that she had requested to be taken to [facility]. Patient presents no evidence of significant objective clinical evidence of a mood disorder. She is cognitively intact. She is saying she wants to go to [facility]. She agrees to having bus passes to get there. I suspect that her continued mood symptoms are related to her continued cocaine use as well as suspect symptom exaggeration or malingering for [facility]. Patient is psychiatrically clear for discharge from the ED. s She will seek care at [facility] on a voluntary status if she chooses to do so. Orders Orders Complete Blood Count With Diff (11/28/17 14:28) Comprehensive Metabolic Panel (11/28/17 14:28) Thyroid Stimulating Hormone (11/28/17 14:28) Urinalysis - C+S If Indicated (11/28/17 14:28) Psych Screen (11/28/17 14:28) Drug Screen, Random Urine (11/28/17 14:28) Alcohol (Ethanol) (11/28/17 14:28) Lorazepam (Ativan) (11/28/17 14:30) Diet Regular Basic (11/28/17 Dinner) Results Vital Signs Date Time Temp Pulse Resp B/P (MAP) Pulse Ox O2 Delivery O2 Flow Rate FiO2 11/28/17 15:55 98.4 75 18 118/53 (74) 100 Room Air 11/28/17 14:11 98.3 75 18 115/55 (75) 100 Laboratory Tests Test 11/28/17 14:45 11/28/17 14:50 Urine Color LIGHT-YELLOW Urine Turbidity HAZY Urine pH 5.5 Urine Specific [place] 1.019 Urine Protein NEG Urine Glucose (UA) NEG Urine Ketones NEG Urine Occult Blood NEG Urine Nitrite NEG Urine Bilirubin NEG Urine Urobilinogen LESS THAN 2.0 Urine Leukocyte Esterase LARGE Urine WBC 4 Urine Squamous Epithelial Cells 16 Microscopic Urinalysis Comment CULT NOT INDICATED Urine Opiates Screen NEG Urine Barbiturates Screen NEG Urine Amphetamines Screen NEG Urine Benzodiazepines Screen NEG Urine Cocaine Screen POS Urine Cannabinoids Screen NEG White Blood Count 4.6 Red Blood Count 4.01 Hemoglobin 13.0 Hematocrit 37.6 Mean Corpuscular Volume 93.8 Mean Corpuscular Hemoglobin 32.3 Mean Corpuscular Hemoglobin Concent 34.5 Red Cell Distribution Width 13.8 Platelet Count 176 Mean Platelet Volume 9.1 Neutrophils (%) (Auto) 65.6 Lymphocytes (%) (Auto) 24.4 Monocytes (%) (Auto) 7.2 Eosinophils (%) (Auto) 2.4 Basophils (%) (Auto) 0.4 Neutrophils # (Auto) 3.0 Lymphocytes # (Auto) 1.1 Monocytes # (Auto) 0.3 Eosinophils # (Auto) 0.1 Basophils # (Auto) 0.0 CBC Comment DIFF FINAL Differential Comment Blood Urea Nitrogen 15 Creatinine 0.70 Random Glucose 83 Total Protein 6.7 Albumin 3.6 Calcium Level 8.7 Alkaline Phosphatase 82 Aspartate Amino Transf (AST/SGOT) 22 Alanine Aminotransferase (ALT/SGPT) 23 Total Bilirubin 0.2 Sodium Level 142 Potassium Level 4.0 Chloride Level 108 Carbon Dioxide Level 22.7 Anion Gap 11 Estimat Glomerular Filtration Rate 93 Thyroid Stimulating Hormone 3rd Gen 0.641 Ethyl Alcohol Level LESS THAN 3 Diagnosis Primary Impression: Cocaine abuse Additional Impression: Substance induced mood disorder Psychiatrically Cleared: Yes Med/ Other Pt Specific Info: No Meds Exist/No RX given Disposition: 01 DISCHARGE HOME Condition: Stable Problem Qualifiers Johnna Flynn Nov 28, 2017 17:27
--- NOTE | 2017-11-28 17:40 | PD ---
Physical Exam Date Seen by Provider: Nov 28, 2017 Time Seen by Provider: 17:38 Narrative 42-year-old female previously cleared medically for psychiatric evaluation, has been seen by psychiatric staff and deemed psychiatrically stable for discharge to [facility]. Patient will be discharged with bus passes to get to the [facility] clinic. She remains medically stable at this time. Data Data Last Documented VS Vital Signs Date Time Temp Pulse Resp B/P (MAP) Pulse Ox O2 Delivery O2 Flow Rate FiO2 11/28/17 15:55 98.4 75 18 118/53 (74) 100 Room Air Orders Orders Complete Blood Count With Diff (11/28/17 14:28) Comprehensive Metabolic Panel (11/28/17 14:28) Thyroid Stimulating Hormone (11/28/17 14:28) Urinalysis - C+S If Indicated (11/28/17 14:28) Psych Screen (11/28/17 14:28) Drug Screen, Random Urine (11/28/17 14:28) Alcohol (Ethanol) (11/28/17 14:28) Lorazepam (Ativan) (11/28/17 14:30) Diet Regular Basic (11/28/17 Dinner) Labs Laboratory Tests Test 11/28/17 14:45 11/28/17 14:50 Urine Color LIGHT-YELLOW Urine Turbidity HAZY Urine pH 5.5 Urine Specific [place] 1.019 Urine Protein NEG mg/dL Urine Glucose (UA) NEG mg/dL Urine Ketones NEG mg/dL Urine Occult Blood NEG Urine Nitrite NEG Urine Bilirubin NEG Urine Urobilinogen LESS THAN 2.0 MG/DL Urine Leukocyte Esterase LARGE Urine WBC 4 /hpf Urine Squamous Epithelial Cells 16 /hpf Microscopic Urinalysis Comment CULT NOT INDICATED Urine Opiates Screen NEG Urine Barbiturates Screen NEG Urine Amphetamines Screen NEG Urine Benzodiazepines Screen NEG Urine Cocaine Screen POS Urine Cannabinoids Screen NEG White Blood Count 4.6 TH/MM3 Red Blood Count 4.01 MIL/MM3 Hemoglobin 13.0 GM/DL Hematocrit 37.6 % Mean Corpuscular Volume 93.8 FL Mean Corpuscular Hemoglobin 32.3 PG Mean Corpuscular Hemoglobin Concent 34.5 % Red Cell Distribution Width 13.8 % Platelet Count 176 TH/MM3 Mean Platelet Volume 9.1 FL Neutrophils (%) (Auto) 65.6 % Lymphocytes (%) (Auto) 24.4 % Monocytes (%) (Auto) 7.2 % Eosinophils (%) (Auto) 2.4 % Basophils (%) (Auto) 0.4 % Neutrophils # (Auto) 3.0 TH/MM3 Lymphocytes # (Auto) 1.1 TH/MM3 Monocytes # (Auto) 0.3 TH/MM3 Eosinophils # (Auto) 0.1 TH/MM3 Basophils # (Auto) 0.0 TH/MM3 CBC Comment DIFF FINAL Differential Comment Blood Urea Nitrogen 15 MG/DL Creatinine 0.70 MG/DL Random Glucose 83 MG/DL Total Protein 6.7 GM/DL Albumin 3.6 GM/DL Calcium Level 8.7 MG/DL Alkaline Phosphatase 82 U/L Aspartate Amino Transf (AST/SGOT) 22 U/L Alanine Aminotransferase (ALT/SGPT) 23 U/L Total Bilirubin 0.2 MG/DL Sodium Level 142 MEQ/L Potassium Level 4.0 MEQ/L Chloride Level 108 MEQ/L Carbon Dioxide Level 22.7 MEQ/L Anion Gap 11 MEQ/L Estimat Glomerular Filtration Rate 93 ML/MIN Thyroid Stimulating Hormone 3rd Gen 0.641 uIU/ML Ethyl Alcohol Level LESS THAN 3 MG/DL [facility] Medical Record Reviewed: Yes Supervised Visit with FLAVIO: Yes Narrative Course 42-year-old female previously cleared medically for psychiatric evaluation, has been seen by psychiatric staff and deemed psychiatrically stable for discharge to [facility]. Patient will be discharged with bus passes to get to the [facility] clinic. She remains medically stable at this time. Diagnosis Primary Impression: Polysubstance abuse Referrals: [facility] Patient Instructions: General Instructions Disposition: 01 DISCHARGE HOME Condition: Stable Tony Rosales Nov 28, 2017 17:40
[2017-11-28 17:57] VITALS: BP 122/57; PULSE 84; RESP 16; TEMP 98.5; O2SAT 100
== END 2017-11-28 18:58 | disposition home or self-care (01) ==
LOC: NEPD 14:03 → NEPJ 18:58
DX: F14.14 Cocaine abuse with cocaine-induced mood disorder (principal); F31.9 Bipolar disorder, unspecified; Z72.0 Tobacco use; Z79.899 Other long term (current) drug therapy
CPT/HCPCS: 80053; 80307; 81001; 84443; 85025; 99283